=== PATIENT | female | born 1980 | race Caucasian/White ===

== ENCOUNTER → 2024-03-27 09:00 | Outpatient (REF) | payer BC, SELFPAY | LOC: HWEVLT 09:00 | PROVIDERS: ATTENDING PHYSICIAN Radiology Vascular & Interventional Radiology | DX: I83.893 Varicose veins of bilateral lower extremities with other complications (principal) | CPT/HCPCS: 93970 ==

== ENCOUNTER → 2024-08-14 12:24 | Outpatient (REF) | payer BC, SELFPAY | LOC: HWEVLT 12:24 | PROVIDERS: ATTENDING PHYSICIAN Radiology Diagnostic Radiology | DX: I83.892 Varicose veins of left lower extremity with other complications (principal) | CPT/HCPCS: 36478 ==

== ENCOUNTER → 2024-09-02 13:11 | Outpatient (REF) | payer BC, SELFPAY | LOC: HWEVLT 13:11 | PROVIDERS: ATTENDING PHYSICIAN Radiology Vascular & Interventional Radiology | DX: I83.892 Varicose veins of left lower extremity with other complications (principal) | CPT/HCPCS: 93971 ==

== ENCOUNTER → 2024-12-25 09:22 | Outpatient (REF) | payer BC, SELFPAY | LOC: HWEVLT 09:22 | PROVIDERS: ATTENDING PHYSICIAN Radiology Diagnostic Radiology | DX: I83.892 Varicose veins of left lower extremity with other complications (principal) | CPT/HCPCS: 36471 ==